=== PATIENT | female | born 1925 | race Caucasian/White ===

== ENCOUNTER 2016-08-10 12:00 | Emergency (ER) | payer MEDICARE, BC ==
[~2016-08-10 12:00] MED LIST: ASPI325T10 PO; CEPH-459 PO; FURO20 PO; KLOR8TAB PO; LEVA500T PO; MACR100C PO; METO25 PO; MOTI25CH PO; TRUSMIS52; XANA0.5T PO
--- NOTE | 2016-08-10 12:25 | PD ---
HPI Chief Complaint: Dizziness Time Seen by Provider: 12:18 Travel History International Travel<30 days: No Contact w/Intl Traveler<30days: No History of Present Illness HPI Patient is an 89-year-old female brought in by EMS for evaluation of vertigo. Patient states that she feels as if the room is spinning when she turns her head. She has a history of vertigo, which has been ongoing for the last 4 years. She denies any chest pain, nausea vomiting, shortness of breath, headache, neck pain. She reports that on Friday she had burning with urination and called her urologist and was prescribed an antibiotic after she did an outpatient urinalysis. She reports living alone and states that she didn 't want to fall so she called EMS to be evaluated. She reports that her son is currently in the hospital after a heart transplant. Patient's past medical history includes congestive heart failure, atrial fibrillation, vertigo, anxiety , chronic cystitis. PFSH Past Medical History Arthritis: Yes Atrial Fibrillation: Yes Anxiety: Yes Cancer: Yes (SKIN CANCER) Chest Pain: No Congestive Heart Failure: Yes Cerebrovascular Accident: No Diabetes: No Diminished Hearing: No Endocrine: No Gastrointestinal Disorders: Yes (HX ACID REFLUX) GERD: Yes Glaucoma: No Genitourinary: No Headaches: Yes Hepatitis: No Hiatal Hernia: No Hypertension: Yes Immune Disorder: No Neurologic: Yes (DIZZINESS, BALANCE PROBLEMS) Psychiatric: No Reproductive: No Migraines: No Thyroid Disease: No Ulcer: No Menopausal: No Past Surgical History Abdominal Surgery: Yes (SPLENECTOMY, APPENDECTOMY) AICD: No Appendectomy: Yes Body Medical Devices: POSSIBLY R ELBOW Cardiac Surgery: No Ear Surgery: No Endocrine Surgery: No Eye Surgery: Yes (MAR CATARACT SURGERY) Hysterectomy: Yes Joint Replacement: No Pacemaker: No Thoracic Surgery: No Tonsillectomy: Yes (AND ADENOIDS) Social History Alcohol Use: No Tobacco Use: No Substance Use: No Allergies-Medications (Allergen,Severity, Reaction): Coded Allergies: Bactrim (Verified Allergy, Severe, FACIAL DISCOLORATION, ERYTHEMIA, ) Naprosyn (Verified Allergy, Severe, THROMBOCYTOPENIA, 01/29/16) Levaquin (Verified Adverse Reaction, Unknown, "EYES BLURRY" "DIDN'T FEEL WELL", 08/07/16) Reported Meds & Prescriptions Reported Meds & Active Scripts Active Keflex (Cephalexin) 250 Mg Cap 250 Mg PO QID Reported Metoprolol Tartrate 25 Mg Tab 12.5 Mg PO BID Lasix (Furosemide) 20 Mg Tab 20 Mg PO DAILY PRN Klor-Con 8 (Potassium Chloride) 8 Meq Tab 8 Meq PO DAILY PRN Aspirin 325 Mg Tab 325 Mg PO DAILY Review of Systems Except as stated in HPI: all other systems reviewed are Neg General / Constitutional: No: Fever, Chills Eyes: No: Blurred Vision, Visual changes HENT: Positive: Lightheadedness, No: Headaches, Neck Pain Cardiovascular: No: Chest Pain or Discomfort Respiratory: No: Shortness of Breath Gastrointestinal: No: Nausea, Vomiting, Abdominal Pain Genitourinary: Positive: Dysuria (reports improvement with current antibiotic therapy) Musculoskeletal: No: Myalgias Neurologic: Positive: Dizziness, No: Syncope, Focal Abnormalities Psychiatric: Positive: Anxiety Physical Exam Narrative GENERAL: Thin, well-developed, elderly female. Resting comfortably in no acute distress. SKIN: Warm and dry. HEAD: Atraumatic. Normocephalic. EYES: Pupils equal and round. No scleral icterus. No injection or drainage. ENT: No nasal bleeding or discharge. Mucous membranes pink and moist. NECK: Trachea midline. No JVD. CARDIOVASCULAR: Regular rate and rhythm. No murmur appreciated. RESPIRATORY: No accessory muscle use. Clear to auscultation. Breath sounds equal but diminished in bases bilaterally. GASTROINTESTINAL: Abdomen soft, non-tender, nondistended. Hepatic and splenic margins not palpable. MUSCULOSKELETAL: No obvious deformities. No clubbing. No cyanosis. No edema. NEUROLOGICAL: Awake and alert. No obvious cranial nerve deficits. Motor grossly within normal limits. Normal speech. PSYCHIATRIC: Appropriate mood and affect; insight and judgment normal. Data Data Last Documented VS Vital Signs Date Time Temp Pulse Resp B/P Pulse Ox O2 Delivery O2 Flow Rate FiO2 08/10/16 12:42 69 18 158/69 70 18 176/78 70 148/66 08/10/16 12:35 96 Room Air Orders Urinalysis - C+S If Indicated (08/10/16 12:16) Ecg Monitoring (08/10/16 12:16) Iv Access Insert/Monitor (08/10/16 12:16) Oximetry (08/10/16 12:16) Meclizine (Antivert) (08/10/16 12:30) Orthostatic Vital Signs (08/10/16 12:16) Urine Culture (08/10/16 12:36) Labs Laboratory Tests Test 08/10/16 12:36 Urine Color YELLOW Urine Turbidity HAZY Urine pH 6.0 Urine Specific [place] 1.013 Urine Protein 30 mg/dL Urine Glucose (UA) NEG mg/dL Urine Ketones TRACE mg/dL Urine Occult Blood MOD Urine Nitrite NEG Urine Bilirubin NEG Urine Urobilinogen LESS THAN 2.0 MG/DL Urine Leukocyte Esterase LARGE Urine RBC 82 /hpf Urine WBC /hpf Urine Squamous Epithelial <1 /hpf Cells Urine Bacteria OCC /hpf Urine Mucus FEW /lpf Microscopic Urinalysis Comment CULTURE INDICATED MDM Medical Decision Making Medical Screen Exam Complete: Yes Emergency Medical Condition: Yes Interpretation(s) Vital Signs Date Time Temp Pulse Resp B/P Pulse Ox O2 Delivery O2 Flow Rate FiO2 08/10/16 12:42 69 18 158/69 70 18 176/78 70 148/66 08/10/16 12:35 18 96 Room Air 08/10/16 12:35 61 18 175/77 96 Room Air 08/10/16 12:35 66 18 97 Room Air Differential Diagnosis Vertigo versus presyncope versus anxiety versus other Narrative Course Patient is an 89-year-old female who presented to the emergency department via EMS for evaluation of vertigo. Patient has a history of vertigo for the last 4 years, she was prescribed meclizine which she has not taken this morning. She states that she is living alone currently due to her son having a recent heart transplant and was concerned that she would fall so she called EMS. She denies any other complaints at this time. The dizzy spell that she is having today is consistent with what she has had in the past. She does report a recent urinary tract infection and is currently on antibiotics for this. Patient is alert, neurologically intact, her vital signs are stable. Patient's daughter presented with prescription that she is currently taking for her urinary tract infection. Patient's on Keflex 250 mg 4 times daily. Urinalysis continues to be consistent with a urinary tract infection, patient advised to complete full course of antibiotics and to follow-up with her urologist. Orthostatic vital signs are stable, patient was able to ambulate in the emergency department, she does use a walker at home. Patient was reassured that antibiotics are likely not exacerbating her vertigo, she was encouraged follow-up with her primary care provider and urologist as scheduled. She was further encouraged to return to emergency department for any new or worsening symptoms. Patient verbalized understanding of these instructions. Patient is stable for discharge. Diagnosis Primary Impression: Vertigo Additional Impression: Urinary tract infection Qualified Code: N39.0 - Urinary tract infection with hematuria, site unspecified Referrals: Primary Care Physician 3 days Patient Instructions: General Instructions, Urinary Tract Infection in Women ( ED), Vertigo (ED) Additional Instructions: Follow-up with your primary care provider Follow-up with your urologist Take medications as directed, continue antibiotics as previously prescribed to complete full course. Return to emergency department for any new or worsening symptoms Continue to use her walker to ambulate Med/Other Pt SpecificInfo: Prescription(s) given, No Change to Meds Scripts Meclizine 25 Mg Tab25 Mg PO TID PRN (VERTIGO) 10 Days Ref 0 Prov:Jennifer Bourgeois 08/10/16 Disposition: 01 DISCHARGE HOME Condition: Stable Jennifer Bourgeois Aug 10, 2016 12:25
[2016-08-10] MEDS ORDERED: MECLIZINE HCL 25 MG TAB PO ONE (12:30)
[2016-08-10 12:35] VITALS: BP 175/77; PULSE 61; RESP 18; O2SAT 96
[2016-08-10 12:42] VITALS: BP_SYST 148; BP_SYST 158; BP_SYST 176; BP_DIAS 66; BP_DIAS 69; BP_DIAS 78; RESP 18
[2016-08-10 13:04] LABS: BACTERIA, URINE OCC /hpf; BLOOD, URINE MOD (NEG); COMMENT (UR) CULTURE INDICATED; CULTURE IF INDICATED CULTURE INDICATED; GLUCOSE,URINE NEG (NEG); KETONE, URINE TRACE mg/dL (NEG); MUCUS URINE FEW /lpf (OCC); NITRITE,URINE NEG (NEG); SQUAMOUS EPITHELIAL CELL URINE <1 /hpf (0-5); URINE COLOR YELLOW (YELLW/STRAW)
[2016-08-10] MEDS ORDERED: KLOR8TAB PO (13:04)
[2016-08-10] MEDS ORDERED: ASPI325T PO (13:04)
[2016-08-10] MEDS ORDERED: FURO1TAB62 PO (13:04)
[2016-08-10] MEDS ORDERED: METO25TA3 PO (13:04)
--- NOTE | 2016-08-10 13:45 | PD ---
Data Data Last Documented VS Vital Signs Date Time Temp Pulse Resp B/P Pulse Ox O2 Delivery O2 Flow Rate FiO2 08/10/16 12:42 69 18 158/69 70 18 176/78 70 148/66 08/10/16 12:35 96 Room Air Orders Urinalysis - C+S If Indicated (08/10/16 12:16) Ecg Monitoring (08/10/16 12:16) Iv Access Insert/Monitor (08/10/16 12:16) Oximetry (08/10/16 12:16) Meclizine (Antivert) (08/10/16 12:30) Orthostatic Vital Signs (08/10/16 12:16) Urine Culture (08/10/16 12:36) Labs Laboratory Tests Test 08/10/16 12:36 Urine Color YELLOW Urine Turbidity HAZY Urine pH 6.0 Urine Specific [place] 1.013 Urine Protein 30 mg/dL Urine Glucose (UA) NEG mg/dL Urine Ketones TRACE mg/dL Urine Occult Blood MOD Urine Nitrite NEG Urine Bilirubin NEG Urine Urobilinogen LESS THAN 2.0 MG/DL Urine Leukocyte Esterase LARGE Urine RBC 82 /hpf Urine WBC /hpf Urine Squamous Epithelial <1 /hpf Cells Urine Bacteria OCC /hpf Urine Mucus FEW /lpf Microscopic Urinalysis Comment CULTURE INDICATED MDM Supervised Visit with RICH: Yes Narrative Course I, Dr. Connolly, have reviewed the advance practice practioner's documentation and am in agreement, met with the patient face to face, made the diagnosis, and the medical decision making was done by me. *My assessment and Findings: 89-year-old female here with history of vertigo with complaint of same. Feels as though the room is spinning when she turns her head. Patient did not take her home meclizine this morning. She was recently seen and diagnosed with cystitis and has been on Keflex it is concerned that this might be making her symptoms worse. She does not have any focal neuro deficits on examination, but does have vertiginous symptoms when turning her head rapidly. No nystagmus. My strong suspicion is that this is her chronic vertigo. Differential includes central etiology, UTI. Her urine is still dirty and she was encouraged to continue her Keflex. She felt improved after oral meclizine was able to ambulate with walker as baseline and will be discharged home. Louise Connolly MD Aug 10, 2016 13:45
[2016-08-10] MEDS ORDERED: MECL-62 PO (14:10)
[2016-08-10 14:39] VITALS: BP 149/76; TEMP 97.8
[2016-09-26] MEDS ORDERED: ASPI1TAB69 PO (09:48)
[2016-09-26] MEDS ORDERED: MECL-62 PO (10:16)
[2016-09-26] MEDS ORDERED: METO25TA3 PO (10:16)
[2016-09-27] MEDS ORDERED: MACR100C2 PO (08:11)
[2016-10-01] MEDS ORDERED: AUGM875T PO (13:20)
[2016-10-18] MEDS ORDERED: AUGM500T7 PO (09:50)
== END 2016-08-10 14:27 | disposition home or self-care (01) ==
LOC: NEPE 12:00
DX: R42 Dizziness and giddiness (principal); N39.0 Urinary tract infection, site not specified; I50.9 Heart failure, unspecified; I48.91 Unspecified atrial fibrillation; I10 Essential (primary) hypertension; N30.20 Other chronic cystitis without hematuria; Z85.828 Personal history of other malignant neoplasm of skin; Z87.19 Personal history of other diseases of the digestive system; Z86.69 Personal history of other diseases of the nervous system and sense organs
CPT/HCPCS: 81001; 87086; 99283

== ENCOUNTER 2016-09-02 16:50 | Emergency (ER) | payer MEDICARE, BC ==
[~2016-09-02] VITALS: Ht 167.6 cm; Wt 55.0 kg
[~2016-09-02 16:50] MED LIST changes: +ASPI325T PO; -ASPI325T10 PO; +FURO1TAB62 PO; -FURO20 PO; -LEVA500T PO; -MACR100C PO; +MECL-62 PO; -METO25 PO; +METO25TA3 PO; -MOTI25CH PO; -TRUSMIS52; -XANA0.5T PO
[2016-09-02 16:53] VITALS: BP 171/98; PULSE 86; RESP 15; TEMP 98.2; O2SAT 95
[2016-09-02] MEDS ORDERED: ATOR20TA15 PO (18:27)
[2016-09-02] MEDS ORDERED: NAPR220T95 PO (18:27)
[2016-09-02] MEDS ORDERED: ALPR.5 PO (18:28)
--- NOTE | 2016-09-02 18:28 | PD ---
HPI Chief Complaint: Respiratory Symptoms Time Seen by Provider: 18:23 Travel History International Travel<30 days: No Contact w/Intl Traveler<30days: No Traveled to known affect area: No History of Present Illness HPI 89-year-old female presents to the emergency department for evaluation of coughing up blood that started approximately 3 days ago. She states that yesterday and today she also noticed some nose bleeds. Patient states she just urinated, she was concerned she might have some blood in her urine. She does state she has some shortness of breath, but states this is chronic for her due to "to be an anxious person". She denies any chest pain or abdominal pain. No vomiting. She denies any fevers or chills. She takes a baby aspirin daily, but denies any other anticoagulants. She does report a history of dizziness and takes meclizine. She also reports a history of CHF, atrial fibrillation. PFSH Past Medical History Hx Anticoagulant Therapy: Yes (325mg aspirin qd) Arthritis: Yes Atrial Fibrillation: Yes Blood Disorders: Yes (HX OF LOW WBC/LOW PLATELETS) Anxiety: Yes Cancer: Yes (SKIN CANCER) Cardiovascular Problems: Yes Chest Pain: No Congestive Heart Failure: Yes Cerebrovascular Accident: No Diabetes: No Diminished Hearing: No Endocrine: No Gastrointestinal Disorders: Yes (HX ACID REFLUX) GERD: Yes Glaucoma: No Genitourinary: No Headaches: Yes Hepatitis: No Hiatal Hernia: No Hypertension: Yes Immune Disorder: No Implanted Vascular Access Dvce: No Musculoskeletal: Yes (ARTHRITIS, R ARM AND SHOULDER DISCOMFORT) Neurologic: Yes (DIZZINESS, BALANCE PROBLEMS) Psychiatric: No Reproductive: No Respiratory: Yes (RECENT RESPIRATORY INFECTION) Migraines: No Thyroid Disease: No Ulcer: No Menopausal: No Past Surgical History Abdominal Surgery: Yes (SPLENECTOMY, APPENDECTOMY) AICD: No Appendectomy: Yes Body Medical Devices: POSSIBLY R ELBOW Cardiac Surgery: No Ear Surgery: No Endocrine Surgery: No Eye Surgery: Yes (MAR CATARACT SURGERY) Gynecologic Surgery: Yes (TOTAL ABDOMINAL HYSTERECTOMY) Hysterectomy: Yes Joint Replacement: No Neurologic Surgery: No Oral Surgery: Yes (T & A) Pacemaker: No Thoracic Surgery: No Tonsillectomy: Yes (AND ADENOIDS) Other Surgery: Yes Social History Alcohol Use: No Tobacco Use: No Substance Use: No Allergies-Medications (Allergen,Severity, Reaction): Coded Allergies: Bactrim (Verified Allergy, Severe, FACIAL DISCOLORATION, ERYTHEMIA, ) Naprosyn (Verified Allergy, Severe, THROMBOCYTOPENIA, 01/29/16) Levaquin (Verified Adverse Reaction, Unknown, "EYES BLURRY" "DIDN'T FEEL WELL", 08/07/16) Reported Meds & Prescriptions Reported Meds & Active Scripts Active Meclizine (Meclizine HCl) 25 Mg Tab 25 Mg PO TID PRN 10 Days Keflex (Cephalexin) 250 Mg Cap 250 Mg PO QID Reported Xanax (Alprazolam) 0.5 Mg Tab 0.5 Mg PO Q6H PRN Aleve (Naproxen Sodium) 220 Mg Tab 220 Mg PO BID PRN Atorvastatin (Atorvastatin Calcium) 20 Mg Tab 20 Mg PO HS Metoprolol Tartrate 25 Mg Tab 12.5 Mg PO BID Lasix (Furosemide) 20 Mg Tab 20 Mg PO DAILY PRN Klor-Con 8 (Potassium Chloride) 8 Meq Tab 8 Meq PO DAILY PRN Aspirin 325 Mg Tab 325 Mg PO DAILY Review of Systems Except as stated in HPI: all other systems reviewed are Neg Physical Exam Narrative GENERAL: Well-developed well-nourished elderly female patient, ambulatory and in no acute distress. Afebrile. SKIN: Warm and dry. HEAD: Normocephalic. Atraumatic. ENT: Mucosa pink and moist. No erythema or exudates. No uvular edema. No uvular , palatal, or tonsillar deviation. Airway patent. Nasal turbinates appear normal without nasal blood, purulent drainage or septal hematoma. Bilateral tympanic membranes are clear without erythema or perforation. EYES: No scleral icterus. No injection or drainage. NECK: Supple, trachea midline. No JVD or lymphadenopathy. CARDIOVASCULAR: Regular rate and rhythm without murmurs, gallops, or rubs. RESPIRATORY: Breath sounds equal bilaterally. No accessory muscle use. Lungs sounds clear to auscultation. GASTROINTESTINAL: Abdomen soft, non-tender, nondistended. MUSCULOSKELETAL: No cyanosis, or edema. BACK: Nontender without obvious deformity. No CVA tenderness. Data Data Last Documented VS Vital Signs Date Time Temp Pulse Resp B/P Pulse Ox O2 Delivery O2 Flow Rate FiO2 09/02/16 19:05 97 Room Air 09/02/16 19:01 145/74 09/02/16 19:01 81 18 09/02/16 16:53 98.2 Orders Complete Blood Count With Diff (09/02/16 18:21) Basic Metabolic Panel (Bmp) (09/02/16 18:21) B-Type Natriuretic Peptide (09/02/16 18:21) D-Dimer (09/02/16 18:21) Act Partial Throm Time (Ptt) (09/02/16 18:21) Prothrombin Time / Inr (Pt) (09/02/16 18:21) Urinalysis - C+S If Indicated (09/02/16 18:21) Iv Access Insert/Monitor (09/02/16 18:21) Electrocardiogram (09/02/16 18:21) Ecg Monitoring (09/02/16 18:21) Oximetry (09/02/16 18:21) Oxygen Administration (09/02/16 18:21) Chest, Single Ap (09/02/16 18:21) Sodium Chloride 0.9% Flush (Ns Flush) (09/02/16 18:30) Ct Pulmonary Angiogram (09/02/16 ) Iohexol 350 Inj (Omnipaque 350 Inj) (09/02/16 19:57) Labs Laboratory Tests Test 09/02/16 18:40 White Blood Count 9.4 TH/MM3 Red Blood Count 4.13 MIL/MM3 Hemoglobin 12.6 GM/DL Hematocrit 37.9 % Mean Corpuscular Volume 91.8 FL Mean Corpuscular Hemoglobin 30.6 PG Mean Corpuscular Hemoglobin 33.3 % Concent Red Cell Distribution Width 14.1 % Platelet Count 203 TH/MM3 Mean Platelet Volume 11.8 FL Neutrophils (%) (Auto) 45.4 % Lymphocytes (%) (Auto) 38.6 % Monocytes (%) (Auto) 12.6 % Eosinophils (%) (Auto) 1.8 % Basophils (%) (Auto) 1.6 % Neutrophils # (Auto) 4.3 TH/MM3 Lymphocytes # (Auto) 3.6 TH/MM3 Monocytes # (Auto) 1.2 TH/MM3 Eosinophils # (Auto) 0.2 TH/MM3 Basophils # (Auto) 0.2 TH/MM3 CBC Comment DIFF FINAL Differential Comment Prothrombin Time 10.9 SEC Prothromb Time International 1.0 RATIO Ratio Activated Partial 26.4 SEC Thromboplast Time D-Dimer Quantitative (PE/DVT) 1.00 MG/L FEU Sodium Level 141 MEQ/L Potassium Level 3.6 MEQ/L Chloride Level 106 MEQ/L Carbon Dioxide Level 25.0 MEQ/L Anion Gap 10 MEQ/L Blood Urea Nitrogen 20 MG/DL Creatinine 0.80 MG/DL Estimat Glomerular Filtration 68 ML/MIN Rate Random Glucose 92 MG/DL Calcium Level 8.5 MG/DL B-Type Natriuretic Peptide 77 PG/ML MDM Medical Decision Making Medical Screen Exam Complete: Yes Emergency Medical Condition: Yes Medical Record Reviewed: Yes Interpretation(s) Last Impressions Chest X-Ray 09/02/16 1821 Signed Impressions: Service Date/Time: Friday, September 02, 2016 18:32 - CONCLUSION: 1. No acute findings. Tortuous aorta. Arjun Lowry MD Differential Diagnosis Allergic rhinitis versus PE versus pneumonia versus CHF exacerbation versus low platelets versus coagulopathy Narrative Course 89-year-old female presents to the emergency department for evaluation of coughing up blood, nosebleeds. She is also concerned of possible hematuria. She also complains of some chronic shortness of breath. CBC, BMP, BNP, d-dimer , PTT, PTT/INR, UA are ordered and pending. Chest x-ray is ordered and pending. EKG is ordered. EKG shows SR with PVCS, no acute ST changes. CBC shows no acute abnormality. BMP shows no acute abnormalities. BNP is 77. Coags are unremarkable. D-dimer is elevated at 1.00. Chest x-ray shows no acute findings. CT pulmonary angiogram is ordered. CTPA reading and UA are pending. Dr. Alex will follow up on results and disposition patient. Tasneem Richmodn Sep 02, 2016 18:28
[2016-09-02] MEDS ORDERED: SODIUM CHLORIDE 0.9% FLUSH 5 ML FLUSH IVF PRN (18:30)
[2016-09-02 18:54] LABS: AUTOMATED NEUTROPHIL # 4.3 TH/MM3 (1.8-7.7); BASOPHIL # 0.2 TH/MM3 (0-0.2); BASOPHIL % 1.6 % (0.0-2.0); EOSINOPHIL # 0.2 TH/MM3 (0-0.4); EOSINOPHIL % 1.8 % (0.0-4.0); HEMATOCRIT 37.9 % (35.0-46.0); HEMO FLAGS DIFF FINAL; LYMPH % 38.6 % (9.0-44.0); LYMPHOCYTE # 3.6 TH/MM3 (1.0-4.8); MEAN CELL VOLUME 91.8 FL (80.0-100.0); MEAN CORPUSCULAR HEMOGLOBIN 30.6 PG (27.0-34.0); MEAN CORPUSCULAR HGB CONC 33.3 % (32.0-36.0); MONO % 12.6 % (0.0-8.0); NEUT % 45.4 % (16.0-70.0); PLATELET COUNT 203 TH/MM3 (150-450); RED BLOOD COUNT 4.13 MIL/MM3 (4.00-5.30); RED CELL DISTRIBUTION WIDTH 14.1 % (11.6-17.2); WHITE BLOOD COUNT 9.4 TH/MM3 (4.0-11.0)
--- NOTE | 2016-09-02 18:58 | RADRPT ---
EXAM DATE/TIME: 09/02/2016 18:32 [facility] COMPARISON: CHEST SINGLE AP, January 29, 2016, 17:09. INDICATIONS : Short of breath MEDICAL HISTORY : None. SURGICAL HISTORY : None. ENCOUNTER: Initial ACUITY: 1 day PAIN SCORE: 0/10 LOCATION: Bilateral chest FINDINGS: A single view of the chest demonstrates the lungs to be symmetrically aerated without evidence of mas s, infiltrate or effusion. The cardiomediastinal contours demonstrate tortuous aorta. Osseous struct ures are intact. CONCLUSION: 1. No acute findings. Tortuous aorta. Arjun Lowry MD on September 02, 2016 at 18:55 Board Certified Radiologist. This report was verified electronically.
[2016-09-02 19:01] VITALS: BP 145/74
[2016-09-02 19:11] LABS: POTASSIUM 3.6 MEQ/L (3.5-5.1)
[2016-09-02 19:22] LABS: APTT (PATIENT) 26.4 SEC (24.3-30.1); PROTHROMBIN TIME - PATIENT 10.9 SEC (9.8-11.6)
[2016-09-02] MEDS ORDERED: IOHEXOL 350 MG/ML 10 ML VIAL (for RAD DIAG) IV ONE (19:57)
--- NOTE | 2016-09-02 21:00 | RADRPT ---
EXAM DATE/TIME: 09/02/2016 19:49 [facility] COMPARISON: No previous studies available for comparison. INDICATIONS : Hemoptysis for three days. IV CONTRAST: 45 cc Omnipaque 350 (iohexol) IV RADIATION DOSE: 10.08 CTDIvol (mGy) MEDICAL HISTORY : Hypertension. SURGICAL HISTORY : None. ENCOUNTER: Initial ACUITY: 3 days PAIN SCALE: 0/10 LOCATION: Bilateral chest TECHNIQUE: Volumetric scanning of the chest was performed using a pulmonary embolism protocol MIP images were re constructed. Using automated exposure control and adjustment of the mA and/or kV according to patien t size, radiation dose was kept as low as reasonably achievable to obtain optimal diagnostic quality images. FINDINGS: No filling defects identified in the pulmonary arteries to suggest pulmonary embolic disease. Mild co ronary calcifications noted. Focal lingular consolidation present. Dependent atelectasis in the lungs . No pleural or pericardial effusion. No acute findings seen in the upper abdomen. CONCLUSION: 1. Negative for pulmonary embolus. 2. Focal lingular consolidation. Differential diagnosis includes pneumonia or aspiration. 3. Mild mosaic attenuation pattern or air trapping. Arjun Lowry MD on September 02, 2016 at 20:55 Board Certified Radiologist. This report was verified electronically.
[2016-09-02 21:09] LABS: BACTERIA, URINE FEW /hpf; BLOOD, URINE LARGE (NEG); COMMENT (UR) CULTURE INDICATED; CULTURE IF INDICATED CULTURE INDICATED; GLUCOSE,URINE NEG (NEG); KETONE, URINE TRACE mg/dL (NEG); MUCUS URINE FEW /lpf (OCC); NITRITE,URINE NEG (NEG); SQUAMOUS EPITHELIAL CELL URINE 2 /hpf (0-5); URINE COLOR YELLOW (YELLW/STRAW)
[2016-09-02] MEDS ORDERED: AUGM875T PO (21:39)
--- NOTE | 2016-09-02 21:44 | PD ---
Physical Exam Date Seen by Provider: Sep 02, 2016 Data Data Last Documented VS Vital Signs Date Time Temp Pulse Resp B/P Pulse Ox O2 Delivery O2 Flow Rate FiO2 09/02/16 19:05 97 Room Air 09/02/16 19:01 145/74 09/02/16 19:01 81 18 09/02/16 16:53 98.2 Orders Complete Blood Count With Diff (09/02/16 18:21) Basic Metabolic Panel (Bmp) (09/02/16 18:21) B-Type Natriuretic Peptide (09/02/16 18:21) D-Dimer (09/02/16 18:21) Act Partial Throm Time (Ptt) (09/02/16 18:21) Prothrombin Time / Inr (Pt) (09/02/16 18:21) Urinalysis - C+S If Indicated (09/02/16 18:21) Iv Access Insert/Monitor (09/02/16 18:21) Electrocardiogram (09/02/16 18:21) Ecg Monitoring (09/02/16 18:21) Oximetry (09/02/16 18:21) Oxygen Administration (09/02/16 18:21) Chest, Single Ap (09/02/16 18:21) Sodium Chloride 0.9% Flush (Ns Flush) (09/02/16 18:30) Ct Pulmonary Angiogram (09/02/16 ) Iohexol 350 Inj (Omnipaque 350 Inj) (09/02/16 19:57) Urine Culture (09/02/16 20:37) Labs Laboratory Tests Test 09/02/16 09/02/16 18:40 20:37 White Blood Count 9.4 TH/MM3 Red Blood Count 4.13 MIL/MM3 Hemoglobin 12.6 GM/DL Hematocrit 37.9 % Mean Corpuscular Volume 91.8 FL Mean Corpuscular Hemoglobin 30.6 PG Mean Corpuscular Hemoglobin 33.3 % Concent Red Cell Distribution Width 14.1 % Platelet Count 203 TH/MM3 Mean Platelet Volume 11.8 FL Neutrophils (%) (Auto) 45.4 % Lymphocytes (%) (Auto) 38.6 % Monocytes (%) (Auto) 12.6 % Eosinophils (%) (Auto) 1.8 % Basophils (%) (Auto) 1.6 % Neutrophils # (Auto) 4.3 TH/MM3 Lymphocytes # (Auto) 3.6 TH/MM3 Monocytes # (Auto) 1.2 TH/MM3 Eosinophils # (Auto) 0.2 TH/MM3 Basophils # (Auto) 0.2 TH/MM3 CBC Comment DIFF FINAL Differential Comment Prothrombin Time 10.9 SEC Prothromb Time International 1.0 RATIO Ratio Activated Partial 26.4 SEC Thromboplast Time D-Dimer Quantitative (PE/DVT) 1.00 MG/L FEU Sodium Level 141 MEQ/L Potassium Level 3.6 MEQ/L Chloride Level 106 MEQ/L Carbon Dioxide Level 25.0 MEQ/L Anion Gap 10 MEQ/L Blood Urea Nitrogen 20 MG/DL Creatinine 0.80 MG/DL Estimat Glomerular Filtration 68 ML/MIN Rate Random Glucose 92 MG/DL Calcium Level 8.5 MG/DL B-Type Natriuretic Peptide 77 PG/ML Urine Color YELLOW Urine Turbidity CLOUDY Urine pH 6.0 Urine Specific [place] 1.033 Urine Protein 100 mg/dL Urine Glucose (UA) NEG mg/dL Urine Ketones TRACE mg/dL Urine Occult Blood LARGE Urine Nitrite NEG Urine Bilirubin NEG Urine Urobilinogen LESS THAN 2.0 MG/DL Urine Leukocyte Esterase LARGE Urine RBC /hpf Urine WBC /hpf Urine WBC Clumps MOD Urine Squamous Epithelial 2 /hpf Cells Urine Bacteria FEW /hpf Urine Mucus FEW /lpf Microscopic Urinalysis Comment CULTURE INDICATED MDM Medical Record Reviewed: Yes Supervised Visit with RICH: Yes Interpretation(s) Vital Signs Date Time Temp Pulse Resp B/P Pulse Ox O2 Delivery O2 Flow Rate FiO2 09/02/16 19:05 97 Room Air 09/02/16 19:01 145/74 Nasal Cannula 09/02/16 19:01 81 18 97 Room Air 09/02/16 16:53 98.2 86 15 171/98 95 Microbiology Date/Time Procedure Status Source Growth 09/02/16 20:37 Urine Culture Received Urine Clean Catch Pending CBC & BMP Diagram 09/02/16 18:40 Last Impressions Chest X-Ray 09/02/16 1821 Signed Impressions: Service Date/Time: Friday, September 02, 2016 18:32 - CONCLUSION: 1. No acute findings. Tortuous aorta. Arjun Lowry MD CT Angiography 09/02/16 0000 Signed Impressions: Service Date/Time: Friday, September 02, 2016 19:49 - CONCLUSION: 1. Negative for pulmonary embolus. 2. Focal lingular consolidation. Differential diagnosis includes pneumonia or aspiration. 3. Mild mosaic attenuation pattern or air trapping. Arjun Lowry MD Narrative Course I, Dr. Alex, have reviewed the advance practice practitioner's documentation and am in agreement, met with the patient face to face, made the diagnosis, and the medical decision making was done by me. Patient is an 89-year-old female who presents to emergency room with complaints of coughing up blood as well as having nosebleeds for the past 3 days. Patient reports that symptoms have been intermittent. Reports that she is currently not on any anticoagulants other than a baby aspirin daily. Patient denies chest pain or shortness of breath. Reports concerns also that she is having some blood in her urine. Patient denies dysuria, urinary urgency or frequency. Reports that she was just treated for a urinary tract infection earlier in the month. Denies fevers or chills. Denies any recent travels or trips. No sick contacts. I reviewed all labs and studies as well as all findings with patient as well as her daughter. Discussed findings of pneumonia and urinary tract infection. 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 Patient reports that she is very anxious to go home and get some rest and would prefer oral antibiotics at this time. Signs and symptoms of when to return to the emergency room reviewed with patient. Patient will return to ER as needed. *My assessment and Findings: Pneumonia and UTI - will treat with augmentin Diagnosis Primary Impression: Pneumonia Qualified Code: J18.9 - Pneumonia due to infectious organism, unspecified laterality, unspecified part of lung Additional Impression: UTI (urinary tract infection) Qualified Code: N30.01 - Acute cystitis with hematuria Patient Instructions: General Instructions Additional Instruction: Please return to the emergency room if symptoms progress or worsen Please follow-up with all cultures from today Return to emergency room as needed. Please call your primary care doctor for earliest follow-up appointment. Med/Other Pt SpecificInfo: Prescription(s) given Scripts Amoxicillin-Clavulanate (Augmentin)875-125 mg [id number] Mg PO BID 10 Days Ref 0 not for use in CrCl <30 ml/min. Prov:Cely Alex DO 09/02/16 Disposition: 01 DISCHARGE HOME Condition: Stable Cely Alex DO Sep 02, 2016 21:44
[2016-09-02] MEDS ORDERED: AMOXICILLIN/CLAVULANATE K 875 MG TAB PO ONE (21:45)
[2016-09-02 21:57] VITALS: BP 168/78; PULSE 72; RESP 17; O2SAT 95
--- NOTE | 2016-09-03 14:11 | EKG ---
Date Performed: 09/02/2016 Time Performed: 20:19:00 PTAGE: 89 years EKG: Sinus rhythm WITH OCCASIONAL VENTRICULAR PREMATURE COMPLEXES MARKED LEFT AXIS DEVIATION LEFT BUNDLE BRANCH BLOCK ABNORMAL ECG Compared to the PREVIOUS TRACING , the patient has developed unifocal PVCs PREVIOUS TRACIN10/12/2014 07.01 DOCTOR: Liza Denise Interpretating Date/Time 09/03/2016 14:11:09
[2016-09-26] MEDS ORDERED: ASPI1TAB69 PO (09:48)
[2016-09-26] MEDS ORDERED: METO25TA3 PO (10:16)
[2016-09-26] MEDS ORDERED: MECL-62 PO (10:16)
[2016-09-27] MEDS ORDERED: MACR100C2 PO (08:11)
[2016-10-01] MEDS ORDERED: AUGM875T PO (13:20)
[2016-10-18] MEDS ORDERED: AUGM500T7 PO (09:50)
== END 2016-09-02 22:16 | disposition home or self-care (01) ==
LOC: NEPA 16:50
DX: J18.9 Pneumonia, unspecified organism (principal); N39.0 Urinary tract infection, site not specified; R04.0 Epistaxis; I50.9 Heart failure, unspecified; I48.91 Unspecified atrial fibrillation; M19.90 Unspecified osteoarthritis, unspecified site; Z79.82 Long term (current) use of aspirin
CPT/HCPCS: 71010; 71275; 80048; 81001; 83880; 85025; 85379; 85610; 85730; 87086; 93005; 99285; Q9967

== ENCOUNTER 2016-09-16 09:11 | Emergency (ER) | payer MEDICARE, BC ==
[~2016-09-16] VITALS: Ht 167.6 cm; Wt 55.0 kg
[~2016-09-16 09:11] MED LIST changes: +ALPR.5 PO; +ATOR20TA15 PO; +AUGM875T PO; -CEPH-459 PO; +NAPR220T95 PO
[2016-09-16 09:21] VITALS: PULSE 74; RESP 16; TEMP 98.2; O2SAT 98
[2016-09-16] MEDS ORDERED: SODIUM CHLORIDE 0.9% FLUSH 5 ML FLUSH IVF PRN (09:45)
[2016-09-16 10:00] LABS: AUTOMATED NEUTROPHIL # 3.5 TH/MM3 (1.8-7.7); BASOPHIL # 0.1 TH/MM3 (0-0.2); BASOPHIL % 1.5 % (0.0-2.0); EOSINOPHIL # 0.2 TH/MM3 (0-0.4); EOSINOPHIL % 2.1 % (0.0-4.0); HEMATOCRIT 33.9 % (35.0-46.0); HEMO FLAGS DIFF FINAL; LYMPH % 38.7 % (9.0-44.0); LYMPHOCYTE # 2.9 TH/MM3 (1.0-4.8); MEAN CELL VOLUME 90.4 FL (80.0-100.0); MEAN CORPUSCULAR HGB CONC 34.3 % (32.0-36.0); MONO % 9.7 % (0.0-8.0); PLATELET COUNT 202 TH/MM3 (150-450); RED BLOOD COUNT 3.75 MIL/MM3 (4.00-5.30); WHITE BLOOD COUNT 7.4 TH/MM3 (4.0-11.0)
[2016-09-16 10:06] VITALS: BP 154/67; PULSE 76; RESP 15; TEMP 97.9; O2SAT 97
--- NOTE | 2016-09-16 10:15 | PD ---
HPI Chief Complaint: Data Analytics Architect Problem/Complaint Time Seen by Provider: 09:27 Travel History International Travel<30 days: No Contact w/Intl Traveler<30days: No Traveled to known affect area: No History of Present Illness HPI 89-year-old female here with complaint of vaginal bleeding. Patient states that for the last 2 nights she woke up with blood on her depends, believes this is coming vaginally. Patient does not have any pain, although it pressure. The blood is burgundy ashen color, with some clot. She denies any hematuria or urinary symptoms. Patient has had a previous hysterectomy, daughter believes they also took her cervix. Patient denies any bloody stools. Her last colonoscopy was approximately 3-5 years ago. She is not anticoagulated. PFSH Past Medical History Hx Anticoagulant Therapy: Yes (325mg aspirin qd) Arthritis: Yes Atrial Fibrillation: Yes Blood Disorders: Yes (HX OF LOW WBC/LOW PLATELETS) Anxiety: Yes Cancer: Yes (SKIN CANCER) Cardiovascular Problems: Yes Chest Pain: No Congestive Heart Failure: Yes Cerebrovascular Accident: No Diabetes: No Diminished Hearing: No Endocrine: No Gastrointestinal Disorders: Yes (HX ACID REFLUX) GERD: Yes Glaucoma: No Genitourinary: No Headaches: Yes Hepatitis: No Hiatal Hernia: No Hypertension: Yes Immune Disorder: No Implanted Vascular Access Dvce: No Musculoskeletal: Yes (ARTHRITIS, R ARM AND SHOULDER DISCOMFORT) Neurologic: Yes (DIZZINESS, BALANCE PROBLEMS) Psychiatric: No Reproductive: No Respiratory: Yes (RECENT RESPIRATORY INFECTION) Migraines: No Thyroid Disease: No Ulcer: No ?: Not Menopausal: No Past Surgical History Abdominal Surgery: Yes (SPLENECTOMY, APPENDECTOMY) AICD: No Appendectomy: Yes Body Medical Devices: POSSIBLY R ELBOW Cardiac Surgery: No Ear Surgery: No Endocrine Surgery: No Eye Surgery: Yes (MAR CATARACT SURGERY) Gynecologic Surgery: Yes (TOTAL ABDOMINAL HYSTERECTOMY) Hysterectomy: Yes Joint Replacement: No Neurologic Surgery: No Oral Surgery: Yes (T & A) Pacemaker: No Thoracic Surgery: No Tonsillectomy: Yes (AND ADENOIDS) Other Surgery: Yes Social History Alcohol Use: No Tobacco Use: No Substance Use: No Allergies-Medications (Allergen,Severity, Reaction): Coded Allergies: Bactrim (Verified Allergy, Severe, FACIAL DISCOLORATION, ERYTHEMIA, ) Naprosyn (Verified Allergy, Severe, THROMBOCYTOPENIA, 09/16/16) Levaquin (Verified Adverse Reaction, Unknown, "EYES BLURRY" "DIDN'T FEEL WELL", 09/16/16) Reported Meds & Prescriptions Reported Meds & Active Scripts Active Augmentin (Amoxicillin-Clavulanate) 875-125 mg Tab 875 Mg PO BID 10 Days not for use in CrCl <30 ml/min. Meclizine (Meclizine HCl) 25 Mg Tab 25 Mg PO TID PRN 10 Days Reported Xanax (Alprazolam) 0.5 Mg Tab 0.5 Mg PO Q6H PRN Aleve (Naproxen Sodium) 220 Mg Tab 220 Mg PO BID PRN Atorvastatin (Atorvastatin Calcium) 20 Mg Tab 20 Mg PO HS Metoprolol Tartrate 25 Mg Tab 12.5 Mg PO BID Lasix (Furosemide) 20 Mg Tab 20 Mg PO DAILY PRN Klor-Con 8 (Potassium Chloride) 8 Meq Tab 8 Meq PO DAILY PRN Aspirin 325 Mg Tab 325 Mg PO DAILY Review of Systems Except as stated in HPI: all other systems reviewed are Neg Physical Exam Narrative GENERAL: Well-appearing female in no acute distress SKIN: Warm and dry. HEAD: Normocephalic. EYES:No scleral icterus. No injection or drainage. ENT: Mucous membranes pink and moist. NECK: Supple CARDIOVASCULAR: Regular rate and rhythm. No murmur appreciated. RESPIRATORY: No accessory muscle use. Clear to auscultation. Breath sounds equal bilaterally. GASTROINTESTINAL: Abdomen soft, non-tender, nondistended. GENITOURINARY: Normal external female genitalia. Speculum examination unremarkable without evidence of intravaginal bleeding. Status post hysterectomy, no cervix present. RECTAL: Normal external, digital rectal examination. Hemoccult negative. MUSCULOSKELETAL: No obvious deformities. NEUROLOGICAL: Awake and alert. Normal speech. PSYCHIATRIC: Appropriate mood and affect; insight and judgment normal. Data Data Last Documented VS Vital Signs Date Time Temp Pulse Resp B/P Pulse Ox O2 Delivery O2 Flow Rate FiO2 09/16/16 10:06 97.9 76 15 154/67 97 Orders Basic Metabolic Panel (Bmp) (09/16/16 09:40) Complete Blood Count With Diff (09/16/16 09:40) Iv Access Insert/Monitor (09/16/16 09:40) Sodium Chloride 0.9% Flush (Ns Flush) (09/16/16 09:45) Labs Laboratory Tests Test 09/16/16 09:45 White Blood Count 7.4 TH/MM3 Red Blood Count 3.75 MIL/MM3 Hemoglobin 11.6 GM/DL Hematocrit 33.9 % Mean Corpuscular Volume 90.4 FL Mean Corpuscular Hemoglobin 31.0 PG Mean Corpuscular Hemoglobin 34.3 % Concent Red Cell Distribution Width 14.0 % Platelet Count 202 TH/MM3 Mean Platelet Volume 11.9 FL Neutrophils (%) (Auto) 48.0 % Lymphocytes (%) (Auto) 38.7 % Monocytes (%) (Auto) 9.7 % Eosinophils (%) (Auto) 2.1 % Basophils (%) (Auto) 1.5 % Neutrophils # (Auto) 3.5 TH/MM3 Lymphocytes # (Auto) 2.9 TH/MM3 Monocytes # (Auto) 0.7 TH/MM3 Eosinophils # (Auto) 0.2 TH/MM3 Basophils # (Auto) 0.1 TH/MM3 CBC Comment DIFF FINAL Differential Comment Sodium Level 141 MEQ/L Potassium Level 3.5 MEQ/L Chloride Level 107 MEQ/L Carbon Dioxide Level 26.7 MEQ/L Anion Gap 7 MEQ/L Blood Urea Nitrogen 20 MG/DL Creatinine 0.85 MG/DL Estimat Glomerular Filtration 63 ML/MIN Rate Random Glucose 90 MG/DL Calcium Level 8.5 MG/DL MDM Medical Decision Making Medical Screen Exam Complete: Yes Emergency Medical Condition: Yes Medical Record Reviewed: Yes Differential Diagnosis 89-year-old female here with complaint of blood per vagina the last 2 days, burgundy in color with clot. Patient's vaginal examination is unremarkable and my strong suspicion status post hysterectomy is that her blood is more likely to be coming from the rectum. On exam she does not have any gross rectal bleeding. Differential includes vaginal bleeding versus GI bleeding, diverticula, hemorrhoid, polyp and/or mass. Narrative Course Patient placed on monitor. CBC, BMP shows hemoglobin 11.6 which is essentially at baseline for patient. Platelets unremarkable. Patient was reassured and instructed to follow up as an outpatient with GI for colonoscopy. [facility] Point of Care Internal Pos. & Neg. Controls: Passed Fecal Specimen Occult Blood: Negative Diagnosis Primary Impression: Rectal bleeding Referrals: Amara Stewart MD call for appointment Farm Manager call for appointment Additional Instructions: Follow-up as an outpatient with GI physician for colonoscopy. Return to the emergency department for the warning signs discussed. Med/Other Pt SpecificInfo: No Change to Meds Disposition: 01 DISCHARGE HOME Condition: Stable Louise Connolly MD Sep 16, 2016 10:15
[2016-09-16 10:16] LABS: BICARBONATE 26.7 MEQ/L (21.0-32.0); POTASSIUM 3.5 MEQ/L (3.5-5.1)
[2016-09-26] MEDS ORDERED: ASPI1TAB69 PO (09:48)
[2016-09-26] MEDS ORDERED: MECL-62 PO (10:16)
[2016-09-26] MEDS ORDERED: METO25TA3 PO (10:16)
[2016-09-27] MEDS ORDERED: MACR100C2 PO (08:11)
[2016-10-01] MEDS ORDERED: AUGM875T PO (13:20)
[2016-10-18] MEDS ORDERED: AUGM500T7 PO (09:50)
== END 2016-09-16 11:12 | disposition home or self-care (01) ==
LOC: NEPE 09:11
DX: K62.5 Hemorrhage of anus and rectum (principal); I48.91 Unspecified atrial fibrillation; I10 Essential (primary) hypertension; Z79.01 Long term (current) use of anticoagulants
CPT/HCPCS: 80048; 85025; 99284